=== PATIENT | female | born 1955 | race Caucasian/White ===

== ENCOUNTER 2018-08-13 07:53 | Inpatient (IN) ==
[2018-08-06 18:00] LABS: Appearance,Urine CLEAR; Bacteria,Urine 0 /hpf (0); Bilirubin,Urine NEG (NEG); Color,Urine YELLOW; Glucose,Urine (UA) NEGATIVE (NEG); Leukocyte Esterase,Urine 25 /uL (NEG); Mucus,Urine FEW /hpf (0); Protein,Urine NEG (NEG); Specific Gravity,Urine 1.021 (1.000-1.035); Urine Blood NEG mg/dL (<0.03); Urine Hyaline Cast 1 /lpf (0-2); Urine RBC 1 /hpf (0-1); Urine Renal Epithelial Cells < 1 /hpf (0-2); Urine Squamous Epithelial Cell < 1 /hpf (0-4); Urine WBC 1 /hpf (0-4); Urobilinogen,Urine NEG (NEG)
[2018-08-06 19:16] LABS: Basophils # (Auto) 0 K/mcL (0.0-0.3); Basophils % (Auto) 0.7 % (0.0-2.0); Eosinophils # (Auto) 0.2 K/mcL (0.0-0.7); Eosinophils % (Auto) 3.2 % (0.0-7.0); Lymphocytes # (Auto) 1.5 K/mcL (1.5-4.8); Lymphocytes % (Auto) 27.4 % (15.5-49.0); Mean Cell Volume 92.6 fL (80.0-100.0); Mean Corpuscular HGB Conc 33.3 g/dL (31.0-36.0); Mean Corpuscular Hemoglobin 30.8 pg (26.0-34.0); Monocytes # (Auto) 0.4 K/mcL (0.1-0.9); Monocytes % (Auto) 7.7 % (1.0-12.0); Platelet Count 228 K/mcL (140-440); RBC 4.42 M/mcL (4.00-5.20); Red Cell Distribution Width 12.9 % (11.5-14.5)
[2018-08-06 19:32] LABS: Blood Urea Nitrogen 20 mg/dl (8-23)
[~2018-08-13 07:53] MED LIST: CELECOXIB 200 MG CAPSULE PO SCH; PREGABALIN 75 MG CAPSULE PO SCH; ceFAZolin 1 GM VIAL IV SCH; oxyCODONE 10 MG TAB.ER.12H PO SCH
[2018-08-13] MEDS ORDERED: ONDANSETRON 4 MG/2 ML VIAL IV ONE (10:25)
[2018-08-13] MEDS ORDERED: PROPOFOL 200 MG/20 ML VIAL IV ONE (10:25)
[2018-08-13] MEDS ORDERED: fentaNYL 250 MCG/5 ML VIAL IV ONE (10:25)
[2018-08-13] MEDS ORDERED: LIDOCAINE HCL/PF 100 MG/5 ML SYRINGE IV ONE (10:25)
[2018-08-13] MEDS ORDERED: ROPIVACAINE HCL/PF 30 ML VIAL IJ ONE (10:25)
[2018-08-13] MEDS ORDERED: MIDAZOLAM 5 MG/5 ML VIAL IV ONE (10:25)
[2018-08-13] MEDS ORDERED: DEXAMETHASONE 10 MG/ML VIAL IV ONE (10:25)
[2018-08-13] MEDS ORDERED: SUCCINYLCHOLINE 20 MG/ML ML IV ONE (10:25)
[2018-08-13] MEDS ORDERED: TRANEXAMIC ACID 1,000 MG/10 ML VIAL IV ONE ×2 (10:25→13:58)
[2018-08-13] MEDS ORDERED: ePHEDrine 50 MG/ML AMPUL IV ONE (10:25)
[2018-08-13] MEDS ORDERED: GLYCOPYRROLATE 0.2 MG/ML VIAL IV ONE (10:25)
[2018-08-13] MEDS ORDERED: GENTAMICIN SULFATE 800 MG/20 ML VIAL IR ONE (11:28)
[2018-08-13] MEDS ORDERED: FLUMAZENIL 0.1 MG/ML ML IV PRN (11:41)
[2018-08-13] MEDS ORDERED: MEPERIDINE 25 MG/ML SYRINGE IV PRN (11:41)
[2018-08-13] MEDS ORDERED: HYDROmorphone 2 MG/ML VIAL IV PRN (11:41)
[2018-08-13] MEDS ORDERED: ATROPINE SULFATE 0.4 MG/ML VIAL IV PRN (11:41)
[2018-08-13] MEDS ORDERED: ONDANSETRON 4 MG/2 ML VIAL IV PRN ×2 (11:41→13:17)
[2018-08-13] MEDS ORDERED: fentaNYL 100 MCG/2 ML VIAL IV PRN (11:41)
[2018-08-13] MEDS ORDERED: PROMETHAZINE 25 MG/ML VIAL IV PRN (11:41)
[2018-08-13] MEDS ORDERED: NALOXONE HCL 0.4 MG/ML VIAL IV PRN (11:41)
[2018-08-13] MEDS ORDERED: METOPROLOL TARTRATE 5 MG/5 ML VIAL IV PRN (11:41)
[2018-08-13] MEDS ORDERED: ACETAMINOPHEN 1,000 MG/100 ML BOTTLE IV ONE (11:41)
[2018-08-13] MEDS ORDERED: ePHEDrine 50 MG/ML AMPUL IV PRN (11:41)
[2018-08-13] MEDS ORDERED: diphenhydrAMINE 50 MG/ML VIAL IV PRN (11:41)
[2018-08-13] MEDS ORDERED: IPRATROPIUM/ALBUTEROL 3 ML AMPUL.NEB NEB PRN (11:41)
[2018-08-13] MEDS ORDERED: METHOCARBAMOL 1,000 MG/10 ML VIAL IV PRN (11:41)
--- NOTE | 2018-08-13 13:16 | Brief Operative Note ---
Date of procedure: 08/13/18 Pre-op diagnosis: right shoulder osteoarthritis, biceps tendonitis Post-op diagnosis: other (posterior glenoid erosion and significant thinning of supraspinatus) Procedure: right reverse total shoulder arthroplasty Surgeon: Long Sarmiento Puffer Tender: Susi Sheldon Estimated blood loss (cc): 150 Specimens Removed/Pathology: none sent Condition: stable Disposition: PACU
[2018-08-13] MEDS ORDERED: BISACODYL 10 MG SUPP.RECT PR PRN (13:17)
[2018-08-13] MEDS ORDERED: FLEETS ADULT ENEMA PR PRN (13:17)
[2018-08-13] MEDS ORDERED: KETOROLAC 15 MG/ML VIAL IV PRN (13:17)
[2018-08-13] MEDS ORDERED: ACETAMINOPHEN 325 MG TABLET PO PRN (13:17)
[2018-08-13] MEDS ORDERED: BENZOCAINE/MENTHOL 1 LOZENGE PO PRN (13:17)
[2018-08-13] MEDS ORDERED: POLYETHYLENE GLYCOL 3350 17 GM PACKET PO PRN (13:17)
[2018-08-13] MEDS ORDERED: TRANEXAMIC ACID 1,000 MG/10 ML VIAL IV SCH (13:17)
[2018-08-13] MEDS ORDERED: METHOCARBAMOL 750 MG TABLET PO PRN (13:17)
[2018-08-13] MEDS ORDERED: MAGNESIUM HYDROXIDE 30 ML ORAL.SUSP PO PRN (13:17)
[2018-08-13] MEDS ORDERED: ONDANSETRON ODT 4 MG TABLET SL PRN (13:17)
--- NOTE | 2018-08-13 13:17 | Discharge Summary ---
Ortho Discharge - TSA - Patient Instructions Diet: Regular Diet Activity: non weight bearing Total Shoulder Protocol: Leave immobilizer in place except for bathing and ROM. Abduction pillow. Continue to wear sling until seen by physician. Codman Pendulum : These exercises use momentum produced by your body to move your shoulder joint. Bend your knees and shift your weight to your front leg, then back, allowing your arm to swing in the same directions. Using the same technique, alternately shift your weight between your right and left legs, allowing your arm to swing from side to side. These exercises are also performed in counterclockwise and clockwise circular motions. Typically these exercises are performed several times per day, for a set number repetitions or minutes, such as 20 times in a row or 5 minutes at a time. Dressing Care: May shower in 2 days - Follow Up Plan Follow Up Appointments: Susi Sheldon PA-C [Physician Apple Checker] - 08/26/18 8:00 am Disposition: Home, Self-Care Prognosis: Good Rehab Potential: Good I certify that the patient requires SNF services: No Overall status at discharge: patient is progressing back to baseline
[2018-08-13] MEDS: 0.9 % SODIUM CHLORIDE 1,000 ML IV SCH ×2 (14:21→22:35)
[2018-08-13] MEDS: 0.9 % SODIUM CHLORIDE 10 ML SYRINGE IV SCH ×2 (14:21→22:11)
--- NOTE | 2018-08-13 14:51 | XRay Report ---
HISTORY: Postop right shoulder replacement FINDINGS: There is a well-positioned right reverse shoulder prosthesis. No fracture is present and there are no abnormal soft tissue calcifications. Mild arthritis is present at the acromioclavicular joint. The right lung volumes are small due to poor inspiration. IMPRESSION: Well-positioned shoulder prosthesis Interpreted and Authenticated by: Noam Ferraro 08/13/18
--- NOTE | 2018-08-13 16:40 | Operative Note ---
DATE OF OPERATION: 08/13/2018 PREOPERATIVE DIAGNOSES: Right shoulder osteoarthritis with posterior glenoid erosion and biceps tendinitis. POSTOPERATIVE DIAGNOSIS: Right shoulder osteoarthritis with posterior glenoid erosion, biceps tendinitis, and significant atrophy of the supraspinatus tendon. PROCEDURE PERFORMED: 1. Right reverse total shoulder arthroplasty. 2. Right shoulder proximal biceps soft tissue tenodesis. SURGEON: Toya Sarmiento M.D. PROMOTIONAL MARKETING AGENT SURGEON: Susi Sheldon PA-C. ANESTHESIA: General. ESTIMATED BLOOD LOSS: 150 mL. COMPLICATIONS: None noted. SPECIMENS REMOVED: None. DRAINS: None. IMPLANTS: DePuy [employer] Unite Porocoat standard stem size 12 mm; DePuy Delta Xtend cementless Metaglene +10; Two DePuy Delta Xtend locking Metaglene screws 4.5 x 24; One nonlocking Metaglene screw 4.5 x 18; DePuy cementless Metaglene +10 DE coated cementless; DePuy Delta Xtend modular eccentric epiphysis size 1 right; De[employer]uy Delta Xtend humeral spacer +9; DePuy Delta Xtend humeral polyethylene cup 38 mm, +9. INDICATIONS: The patient has had a longstanding history of worsening pain in the shoulder with severe osteoarthritis with the posterior glenoid erosion. She has failed conservative treatment. Radiographs have confirmed advanced degenerative joint disease with posterior erosion of the glenoid. After a long discussion about treatment options, the patient elected to proceed with a total shoulder arthroplasty. The risks and benefits were discussed with the patient in detail including, but not limited to, the risks of anesthesia, problems with the heart or lungs related to anesthesia, infection, compromise or injury to the nerves and blood vessels, deep venous thrombosis, pulmonary embolism, pneumonia, continued pain after surgery, worsening pain or symptoms after surgery, swelling, loss of motion, instability, fracture, arm length discrepancy, and need for repeat surgery. DESCRIPTION OF PROCEDURE: The patient was seen in the preanesthesia waiting room where all questions were answered and the correct side and site were identified and marked. The patient was transferred to the operating room and administered the anesthetic and given preoperative antibiotics. A time-out was then called. The patient was placed in the modified beach chair position with all prominences well padded. The extremity was prepped and draped from the fingers up to the neck. A standard deltopectoral skin incision was created. Dissection was carried down to the deltopectoral groove and the cephalic vein was isolated medially and retracted laterally with the deltoid. Retractors were placed and the coracobrachialis was split up to the coracoacromial ligament allowing retraction of the conjoined tendon. We split the subscapularis 1 cm medial to the bicipital groove and extended the split into the rotator interval. This was tagged for later repair. The supraspinatus was thin and atrophic but still intact and the infraspinatus was intact. The biceps was cut and a soft tissue tenodesis was performed into the anterior shoulder with #2 FiberWire. A capsular release was performed in a posterior subperiosteal direction along the humerus. The humeral head was then dislocated. We established intramedullary access and hand reamed up to get good cortical chatter with the standard total shoulder instrumentation. We made our neck cut. We then dissected down to the glenoid. There was severe glenoid retroversion. I used the pin and we used a 5 mm offset. We then reamed, reaming some of the anterior bone down to a good base. I placed the glenoid in a standard fashion and then trialed the head and because of medialization and the severe wear, we were unable to get a stable implant. I did feel that the supraspinatus was compromised, so at this point I felt that we should switch to a reverse total shoulder arthroplasty to get best function and stability of her shoulder. We then switched the humeral stem. We used a [employer] Delta XTEND reverse total shoulder instrumentation. We then used the intramedullary guide and set to about 5 degrees of retroversion. The proximal humerus cut was performed and osteophytes were removed. A metal protector plate was then placed. Attention was then turned to the glenoid. Retractors were placed and we removed the polyethylene liner. A centralizing Steinmann pin was placed just into the posterior inferior quadrant in a standard fashion. The drill was then placed over for the central peg. A cementless +10 Metaglene was then impacted into place. We then drilled, measured, and placed the four screws starting inferior, then superior, then anterior, and finally posterior. The superior locking screw was lined up at the base of the coracoid process. We then impacted the head onto the Metaglene and tightened down in a standard fashion. Attention was then turned back to the humerus. Proximal reaming was performed off the intramedullary guide into the humeral head, using the eccentric guide to allow best coverage. We again set version and broached up to a stable implant. Trials were placed and good tension, motion, and stability were obtained at this point. Trials were removed and the final press fit femoral prosthesis was impacted into place with measured version. The final polyethylene was placed and the shoulder was reduced and again checked for motion, tension, and stability. We irrigated with 3 liters of antibiotic saline and closed the subscapularis with # 2 FiberWire. We irrigated again and closed the deltopectoral interval with several # 0 Vicryl figure of eight sutures. The subcutaneous layer was closed with 2-0 Vicryl and the skin was closed with 4-0 Monocryl in a subcuticular fashion. A sterile pressure dressing was applied and the patient was placed into an abduction sling. All needle and sponge counts were correct. The patient was transferred to the recovery room in stable condition. AKIN:rebecca Job ID: [id number] Doc ID: [id number] Toya Sarmiento MD
[2018-08-13] MEDS: ceFAZolin 1 GM VIAL IV SCH (17:31)
[2018-08-13] MEDS: POTASSIUM CHLORIDE 10 MEQ TABLET PO SCH (17:31)
[2018-08-13] MEDS: CARVEDILOL 3.125 MG TABLET PO SCH (17:31)
[2018-08-13] MEDS: HYDROcodone/APAP 10/325MG TABLET PO PRN ×2 (20:17→22:13)
[2018-08-13] MEDS ORDERED: LISINOPRIL 10 MG TABLET PO SCH (21:00)
[2018-08-13] MEDS ORDERED: SENNOSIDES 1 TABLET PO SCH (21:00)
[2018-08-13] MEDS ORDERED: CETIRIZINE 10 MG TABLET PO SCH (21:00)
[2018-08-13] MEDS ORDERED: SIMVASTATIN 40 MG TABLET PO SCH (21:00)
[2018-08-13] MEDS: DOCUSATE SODIUM 100 MG CAPSULE PO SCH (22:10)
[2018-08-14] MEDS: ceFAZolin 1 GM VIAL IV SCH (02:33)
[2018-08-14] MEDS: HYDROcodone/APAP 10/325MG TABLET PO PRN ×3 (03:03→11:12)
[2018-08-14] MEDS: 0.9 % SODIUM CHLORIDE 1,000 ML IV SCH (05:11)
[2018-08-14] MEDS: 0.9 % SODIUM CHLORIDE 10 ML SYRINGE IV SCH (05:15)
--- NOTE | 2018-08-14 07:25 | Orthopedic Progress Note ---
Subjective Patient information: Note initiated : 08/14/18 at 7:24 am Service Date, if different from initiated Date: [] Patient: Jess Cannon 62 y/o F admitted on 08/13/18 for Right Total Shoulder ;Open Reinsertion Prox Biceps. Chief Complaint: [] Interval history: doing well. no complaints Objective Vital signs: Vital Signs Temp Pulse Pulse Resp BP BP BP 08/14/18 07:09 97.9 F 89 18 101/51 08/14/18 02:56 97.8 F 72 18 128/59 08/13/18 23:56 98 F 78 18 117/61 08/13/18 20:26 97.4 F 73 16 141/84 08/13/18 20:00 16 141/84 08/13/18 16:48 97.1 F 71 126/72 08/13/18 15:48 98.2 F 55 L 129/56 08/13/18 15:18 57 L 129/67 08/13/18 15:03 64 132/61 08/13/18 14:48 55 L 126/68 08/13/18 14:33 56 L 121/65 08/13/18 14:17 66 129/71 08/13/18 14:04 98.0 F 74 14 125/60 08/13/18 13:49 77 15 112/52 08/13/18 13:34 97.4 F 76 17 104/56 08/13/18 13:29 73 15 106/65 08/13/18 13:24 76 17 117/61 08/13/18 13:19 97.4 F 75 16 115/48 08/13/18 08:00 97.7 F 73 16 113/73 Pulse Ox 08/14/18 07:09 92 08/14/18 02:56 90 08/13/18 23:56 90 08/13/18 20:26 93 08/13/18 20:00 08/13/18 16:48 99 08/13/18 15:48 98 08/13/18 15:18 98 08/13/18 15:03 99 08/13/18 14:48 98 08/13/18 14:33 98 08/13/18 14:17 98 08/13/18 14:04 97 08/13/18 13:49 98 12/04/18 13:34 94 08/13/18 13:29 97 08/13/18 13:24 98 08/13/18 13:19 100 08/13/18 08:00 93 Intake and Output 08/13/18 08/14/18 08/14/18 21:59 05:59 13:59 Intake Total 1180 / 1180 2251 / 2251 Output Total 900 / 900 1550 / 1550 Balance 280 / 280 701 / 701 Intake: IV 1451 / 1451 Sodium Chloride 0.9% 1,000 ml @ 1451 / 1451 125 mls/hr IV .Q8H MANJU Rx#: [id number] Oral 1180 / 1180 800 / 800 Output: Void Amount 900 / 900 1550 / 1550 Other: Meal Dinner Percent of Meal Consumed 100% Feeding Ability Assist with Tray Set Up Urine Appearance Clear Urine Color Bright Yellow Bright Yellow Urine Odor Normal Normal # Voids 1 Weight 151 lb Intake & Output: Intake & Output 08/13/18 08/14/18 08/14/18 21:59 05:59 13:59 Intake Total 1180 / 1180 2251 / 2251 Output Total 900 / 900 1550 / 1550 Balance 280 / 280 701 / 701 Weight 151 lb Intake: IV 1451 / 1451 Sodium Chloride 0.9% 1,000 ml @ 1451 / 1451 125 mls/hr IV .Q8H MANJU Rx#: [id number] Oral 1180 / 1180 800 / 800 Output: Void Amount 900 / 900 1550 / 1550 Other: Meal Dinner Percent of Meal Consumed 100% Feeding Ability Assist with Tray Set Up Urine Appearance Clear Urine Color Bright Yellow Bright Yellow Urine Odor Normal Normal # Voids 1 Incision: Yes healing Incision clean and dry: Yes Dressing: Yes clean, Yes dry, Yes intact Weight bearing status: non Neurological exam IM: Yes alert, Yes normal gait, Yes oriented X3, Yes motor sensory intact, Yes neurovascular intact Extremities exam IM: No calf tenderness, Yes Foot pink and warm, Yes neurovascular intact - Labs CBC & BMP: 08/14/18 05:09 08/06/18 16:37 Labs: Orthopedic Labs 08/06/18 16:36 PT 12.9 INR 1.0 08/14/18 08/06/18 05:09 16:37 Hgb 11.3 L 13.6 Hct 33.9 L 40.9 Assessment and Plan (1) Osteoarthritis, shoulder pod 1 s/p reverse tsa nwb brace pain control home today Status: Acute
[2018-08-14] MEDS: POTASSIUM CHLORIDE 10 MEQ TABLET PO SCH ×2 (08:01→12:09)
[2018-08-14] MEDS: CARVEDILOL 3.125 MG TABLET PO SCH (08:01)
[2018-08-14] MEDS ORDERED: FUROSEMIDE 20 MG TABLET PO SCH (09:00)
[2018-08-14] MEDS: DOCUSATE SODIUM 100 MG CAPSULE PO SCH (09:27)
== END 2018-08-14 12:06 | disposition home or self-care (01) | DRG 483 ==
LOC: MEDSUR 07:53
PROVIDERS: ADMIT Orthopaedic Surgery Sports Medicine; ATTEND Orthopaedic Surgery Sports Medicine
CPT/HCPCS: 97161